=== PATIENT | male | born 1970 | race Caucasian/White ===

== ENCOUNTER → 2016-09-18 | Outpatient (CLI) | payer BC ==
--- NOTE | 2016-09-18 17:05 | DI ---
XR TIB/FIB 2VW,09/18/2016 4:11 PM: Clinical History: Right below the knee amputation. Previous Exam: September 04, 2015 Findings: AP and lateral views of the right knee are obtained demonstrating new postsurgical changes consistent with a thyio-jik-ixgz amputation in the mid right tibial diaphysis. The fibula has been missing sinc e the prior exam. There is a small knee joint effusion. There is no periosteal reaction. Impression: Status post nvins-jaj-obes amputation. Right knee joint effusion.
== END ==
LOC: ORTHO 16:30
PROVIDERS: ATTEND Orthopaedic Surgery
DX: M25.561 Pain in right knee (principal); M25.461 Effusion, right knee; Z89.511 Acquired absence of right leg below knee; Z89.512 Acquired absence of left leg below knee
CPT/HCPCS: 73590